=== PATIENT | male | born 1965 | race Caucasian/White ===

== ENCOUNTER → 2017-03-13 00:18 | Emergency (ER) | payer BC, OTHER ==
[2017-03-13 00:24] VITALS: BP 153/80
--- NOTE | 2017-03-13 02:03 | ED ---
Laceration/Wound HPI - HPI Summary HPI Summary: 51M presents with laceration left arm. He states that he was at work at [employer] and he cut his arm on a metal piece. The area has been bleeding. He is not on blood thinners. He has full rom of his arm. He is right handed. He denies any numbness or tingling. His tetanus is up to date. - History of Current Complaint Stated Complaint: LT ARM LAC Time Seen by Provider: 03/13/17 01:09 Pain Intensity: 1 - Allergy/Home Medications Allergies/Adverse Reactions: Allergies Allergy/AdvReac Type Severity Reaction Status Date / Time No Known Allergies Allergy Verified 03/13/17 00:25 PMH/Surg Hx/FS Hx/Imm Hx Endocrine/Hematology History: Denies: Hx Anticoagulant Therapy Cardiovascular History: Reports: Hx Hypertension - Immunization History Immunizations Up to Date: Unable to Obtain/Confirm Infectious Disease History: No Infectious Disease History: Denies: Traveled Outside the [place] in Last 30 Days - Family History Known Family History: Positive: Hypertension - Social History Alcohol Use: Occasionally Substance Use Type: Reports: None Smoking Status (MU): Current Every Day Smoker Review of Systems Negative: Fever Negative: Chest Pain Negative: Shortness Of Breath Positive: Other - laceration left arm All Other Systems Reviewed And Are Negative: Yes Physical Exam Triage Information Reviewed: Yes Vital Signs On Initial Exam: Initial Vitals Temp Pulse Resp BP Pulse Ox 99.6 F 92 16 153/80 96 03/13/17 00:20 03/13/17 00:20 03/13/17 00:20 03/13/17 00:20 03/13/17 00:20 Vital Signs Reviewed: Yes Appearance: Positive: Well-Appearing Skin: Positive: Warm, Dry, Other - 3cm by 1/4cm on dorsum of left arm Head/Face: Positive: Normal Head/Face Inspection Eyes: Positive: Normal, Conjunctiva Clear Respiratory/Lung Sounds: Positive: Clear to Auscultation, Breath Sounds Present Cardiovascular: Positive: Normal, RRR Musculoskeletal: Positive: Strength/ROM Intact - left arm, Other - good pulses, capillary refill<2 secs - Pk Coma Scale Coma Scale Total: 15 Procedures - Laceration/Wound Repair 1 Location: Other - left arm Description: Linear Anesthesia: Local, 1.0% Length, Depth and Shape: 3cm by 1/4cm Betadine Prep?: Yes Irrigated w/ Saline (ccs): 300 Laceration/Wound Explored: clean, no foreign body removed Closure: Single Layer Suture Type: Prolene - 4-0 Number of Sutures: 3 Layer Closure?: No Sterile Dressing Applied?: Yes - neosporin and telfa and coband Diagnostics - Vital Signs Vital Signs Temp Pulse Resp BP Pulse Ox 03/13/17 00:20 99.6 F 92 16 153/80 96 - Laboratory Lab Statement: Any lab studies that have been ordered have been reviewed, and results considered in the medical decision making process. Laceration Repair Course/Dx - Course Course Of Treatment: 51M presents with laceration left arm. He states that he was at work at [employer] and he cut his arm on a metal piece. The area has been bleeding. He is not on blood thinners. He has full rom of his arm. cleaned and placed 3 sutures. patient understands and agrees with plan. - Differential Dx Differental Diagnoses: Abrasion, Avulsion, Laceration - Clinical Impression Provider Diagnoses: Laceration of left upper arm Discharge - Discharge Plan Condition: Good Disposition: HOME Patient Education Materials: Care For Your Stitches (ED) Referrals: Ricky Gaines MD [Primary Care Provider] - Additional Instructions: Take Tylenol or ibuprofen for pain Keep area clean and dry for 24 hours Return to ED, urgent care, or primary in 10-14 days to have sutures removed Return to ED if develop signs of infection such as fever, spreading redness, or pus.
== END | disposition home or self-care (01) ==
LOC: ED 00:18
DX: S41.112A Laceration without foreign body of left upper arm, initial encounter (principal); W26.8XXA Contact with other sharp object(s), not elsewhere classified, initial encounter; Y93.89 Activity, other specified; Y92.512 Supermarket, store or market as the place of occurrence of the external cause; Y99.0 Civilian activity done for income or pay; I10 Essential (primary) hypertension; F17.210 Nicotine dependence, cigarettes, uncomplicated
CPT/HCPCS: 12002; 99281

== ENCOUNTER 2018-09-23 08:10 | Emergency (ER) | payer BC, OTHER ==
[2018-09-23 08:23] VITALS: BP 162/92
--- NOTE | 2018-09-23 08:53 | UC ---
Knee Pain HPI - HPI Summary HPI Summary: 5 OR 6 DAYS AGO WAS GOING DOWN THE STEPS AND TOOK A MISSTEP. TWISTED LEFT KNEE AND HAS HAD PAIN AND SWELLING SINCE THEN. PAIN IS CENTERED JUST ABOVE THE PATELLA. HAS SOME LEG WEAKNESS. NO PREVIOUS KNEE INJURIES. IS HAVING DIFFICULTY AMBULATING. - History of Current Complaint Chief Complaint: UCLowerExtremity Stated Complaint: L KNEE INJURY Time Seen by Provider: 09/23/18 08:30 Hx Obtained From: Patient Onset/Duration: Sudden Onset, Lasting Days, Still Present Severity Initially: Moderate Severity Currently: Moderate Pain Intensity: 8 Pain Scale Used: 0-10 Numeric Character: Sharp Aggravating Factor(s): Movement, Weight Bearing Alleviating Factor(s): Cold Associated Signs And Symptoms: Positive: Swelling, Weakness Able to Bear Weight: Yes - WITH PAIN - Allergies/Home Medications Allergies/Adverse Reactions: Allergies Allergy/AdvReac Type Severity Reaction Status Date / Time No Known Allergies Allergy Verified 09/23/18 08:23 Home Medications: Home Medications NK [No Home Medications Reported] 09/23/18 [History Confirmed 09/23/18] PMH/Surg Hx/FS Hx/Imm Hx Previously Healthy: Yes Other History Of: Negative For: Anticoagulant Therapy - Surgical History Surgical History: None - Family History Known Family History: Positive: Hypertension - Social History Alcohol Use: Occasionally Substance Use Type: None Smoking Status (MU): Current Every Day Smoker Review of Systems All Other Systems Reviewed And Are Negative: Yes Constitutional: Positive: Negative Skin: Positive: Negative Respiratory: Positive: Negative Cardiovascular: Positive: Negative Gastrointestinal: Positive: Negative Musculoskeletal: Positive: Arthralgia, Decreased ROM, Edema Physical Exam Triage Information Reviewed: Yes Appearance: Well-Appearing, No Pain Distress, Well-Nourished Vital Signs: Initial Vital Signs Temp 98.3 F 09/23/18 08:17 Pulse 85 09/23/18 08:17 Resp 18 09/23/18 08:17 BP 162/92 09/23/18 08:17 Pulse Ox 98 09/23/18 08:17 Vital Signs Reviewed: Yes Eyes: Positive: Conjunctiva Clear ENT: Positive: Hearing grossly normal Neck: Positive: Supple Respiratory: Positive: No respiratory distress, No accessory muscle use Cardiovascular: Positive: Pulses Normal Abdomen Description: Positive: Soft Musculoskeletal: Positive: Strength Limited @ - LEFT KNEE EXTENSION, ROM Limited @ - LEFT KNEE, Edema @ - LEFT KNEE, Other: - LEFT KNEE: NO JOINT LINE TENDERNESS. TENDERNESS OVER PROXIMAL PATELLA AND QUADRICEPS TENDON. MCL AND LCL INTACT TO STRESS TESTING. NEG DRAWERS SIGNS. UNABLE TO PERFORM MCMURRAYS - PT DOES NOT TOLERATE. NO TENDERNESS OVER PATELLAR LIGAMENT. DECREASED ROM (FLEXION) . Neurological: Positive: Alert Psychological: Positive: Age Appropriate Behavior Skin: Negative: Rashes Diagnostics - Radiology LEFT KNEE XRAY Radiology Interpretation Completed By: Radiologist Summary of Radiographic Findings: NO EVIDENCE FOR FRACTURE. Knee Pain Course/Dx - Course Course Of Treatment: CONCERN FOR PARTIAL QUADRICEPS TENDON RUPTURE. ORTHO OFFICE CALLED. PT WILL GO DIRECTLY THERE FROM HERE FOR FURTHER EVAL. - Differential Dx/Diagnosis Provider Diagnosis: Injury of quadriceps tendon Discharge - Sign-Out/Discharge Documenting (check all that apply): Patient Departure All imaging exams completed and their final reports reviewed: Yes - Discharge Plan Condition: Stable Disposition: HOME Patient Education Materials: Tendon Rupture (ED) Referrals: Ricky Gaines MD [Primary Care Provider] - If Needed Phoebe Abrams MD [Medical Doctor] - (GO DIRECTLY TO ORTHO OFFICE FROM HERE. THEY ARE EXPECTING YOU) Additional Instructions: KNEE XRAY UNREMARKABLE. I AM CONCERNED YOU HAVE INJURED YOUR QUADRICEPS TENDON. YOU MAY BENEFIT FROM [facility]. GO DIRECTLY TO DR. ABRAMS'S OFFICE FROM HERE. THEY ARE EXPECTING YOU. - Billing Disposition and Condition Condition: STABLE Disposition: Home
== END 2018-09-23 09:52 | disposition home or self-care (01) ==
LOC: UCEAST 08:10
DX: S76.102A Unspecified injury of left quadriceps muscle, fascia and tendon, initial encounter (principal); F17.200 Nicotine dependence, unspecified, uncomplicated; X50.9XXA Other and unspecified overexertion or strenuous movements or postures, initial encounter; Y92.9 Unspecified place or not applicable
CPT/HCPCS: 99211; G0463